=== PATIENT | female | born 1950 | race Caucasian/White ===

== ENCOUNTER 2024-02-08 20:40 | Emergency (ER) | payer MEDICARE, SELFPAY ==
[2024-02-08 20:48] VITALS: BP 155/88; PULSE 68; RESP 18; TEMP 36.8; O2SAT 99; BMI 20.8
--- NOTE | 2024-02-08 21:07 | ED.GENADULT ---
HPI - General Adult General Chief complaint: Skin/Abscess/Foreign Body Stated complaint: R ear has tip of hearing aid stuck inside Time Seen by Provider: 02/08/24 20:41 History of Present Illness HPI narrative: Patient lost part of her hearing aid in her right ear. She presents for removal. She has no pain. Related Data Home Medications ?Medication ?Instructions ?Recorded ?Confirmed alendronate 70 mg tablet 70 mg PO Q7D 02/08/24 02/08/24 atorvastatin 40 mg tablet 40 mg PO DAILY 02/08/24 02/08/24 lisinopril 2.5 mg tablet 2.5 mg PO DAILY blood pressure 02/08/24 02/08/24 metformin 500 mg tablet,extended 500 mg PO DAILY 02/08/24 02/08/24 release 24 hr Allergies Allergy/AdvReac Type Severity Reaction Status Date / Time No Known Drug Allergies Allergy Verified 02/08/24 20:50 Review of Systems Narrative: No history of difficulty with her hearing aids in the past Exam Narrative: Exam Narrative: Objective: Patient's right ear has a foreign body in the middle ear canal that was easily grasped with an alligator and removed, was the back of the hearing aid that goes in the ear. Rest of the ear was inspected there was no other foreign body noted Const: Vital Signs, click to edit/add: Vital Signs - 24 hr 02/08/24 20:48 Temperature 98.2 F Pulse Rate [Right Pulse Oximeter] 68 Respiratory Rate 18 Blood Pressure [Ri ght Upper Arm] 155/88 H Pulse Oximetry 99 Oxygen Delivery Me thod Room Air Course Vital Signs Vital signs: Initial Vital Signs Temperature 98.2 F 02/08/24 20:48 Temperature Source Temporal Artery Scan 02/08/24 20:48 Pulse Rate 68 02/08/24 20:48 Respiratory Rate 18 02/08/24 20:48 Blood Pressure 155/88 H 02/08/24 20:48 Blood Pressure Mean 110 H 02/08/24 20:48 Blood Pressure Position Sitting 02/08/24 20:48 Pulse Oximetry 99 02/08/24 20:48 Oxygen Delivery Method Room Air 02/08/24 20:48 Vital Signs Temperature 98.2 F 02/08/24 20:48 Pulse Rate 68 02/08/24 20:48 Respiratory Rate 18 02/08/24 20:48 Blood Pressure 155/88 H 02/08/24 20:48 Pulse Oximetry 99 02/08/24 20:48 Oxygen Delivery Method Room Air 02/08/24 20:48 Temperature 98.2 F 02/08/24 20:48 Pulse Rate 68 02/08/24 20:48 Respiratory Rate 18 02/08/24 20:48 Blood Pressure 155/88 H 02/08/24 20:48 Pulse Oximetry 99 02/08/24 20:48 Oxygen Delivery Method Room Air 02/08/24 20:48 Discharge Plan Discharge Clinical Impression: Acute foreign body of right ear Patient Disposition: Home, Self-Care Condition: Improved Activity Level: No Restrictions Discharge Diet: Regular Prescriptions: No Action alendronate 70 mg tablet 70 mg PO Q7D atorvastatin 40 mg tablet 40 mg PO DAILY metformin 500 mg tablet extended release 24 hr 500 mg PO DAILY lisinopril 2.5 mg tablet 2.5 mg PO DAILY Follow Up/Referrals: Nish Roy MD [Primary Care Provider] - Stand [facility]one [facility] Inst[facility]
[2024-02-08 21:28] VITALS: BP 144/74; PULSE 70; RESP 18; TEMP 36.8; O2SAT 99
[2024-02-08 21:29] VITALS: BP 144/74; PULSE 70; RESP 18; TEMP 36.8
== END 2024-02-08 21:30 | disposition home or self-care (01) ==
LOC: ED 21:22
PROVIDERS: Emergency Provider Family Medicine; PCP Family Medicine
DX: T16.1XXA Foreign body in right ear, initial encounter (principal)
CPT/HCPCS: 69200; 99283